=== PATIENT | female | born 1975 ===

== ENCOUNTER 2020-06-03 11:35 | Emergency (ER) | payer MEDICAID ==
[~2020-06-03] VITALS: Ht 165.1 cm; Wt 60.0 kg
[2020-06-03 12:21] VITALS: BP 158/101
== END 2020-06-03 16:50 | disposition left against medical advice (07) ==
LOC: ER 11:36
DX: N23 Unspecified renal colic (principal); Z53.21 Procedure and treatment not carried out due to patient leaving prior to being seen by health care provider